=== PATIENT | female | born 2000 ===

== ENCOUNTER 2025-05-11 07:00 | Day surgery (SDC) | payer OTHER ==
[2025-05-11] MEDS ORDERED: POVIDONE-IODINE 118 ML BOTT TOP ONE (09:06)
[2025-05-11] MEDS ORDERED: CEFAZOLIN SODIUM 1,000 MG VIAL ONE (09:06)
== END 2025-05-11 15:10 | disposition home or self-care (01) ==
LOC: CIR.AMB 07:00
PROVIDERS: ATTEND Obstetrics & Gynecology
DX: N84.0 Polyp of corpus uteri (principal); N92.0 Excessive and frequent menstruation with regular cycle